=== PATIENT | male | born 1960 | race African-American/Black ===

== ENCOUNTER 2020-04-04 11:04 | Outpatient (CLI) | payer BC ==
[2020-04-04 12:02] LABS: Bilirubin Neg (Negative); Blood, Urine Negative (Negative); Clarity Clear (Clear); Glucose, Urine (Dipstick) Normal (Negative); Ketone, Urine Negative (Negative); Leukocyte Negative (Negative); Nitrite Negative (Negative); Protein, Urine (Dipstick) Negative (Neg-Trace); Specific Gravity, Urine 1.015 (1.002-1.036); Urobilinogen Normal mg/dL (Less than 2)
[2020-04-04 12:07] LABS: #Monocytes 0.5 10x3/uL (0.0-1.1); #Neutrophils 3.4 10x3/uL (1.5-8.4); %Basophils 0.6 % (0.0-2.0); %Eosinophils 0.4 % (0.0-6.0); %Lymphocytes 26.3 % (18.0-47.0); %Neutrophils 62.5 % (40.0-75.0); Hemoglobin 15.2 g/dL (14.0-18.0); Mean Corpuscular HGB CONC 32.1 G/DL (32.0-36.0); Mean Corpuscular Volume 93.7 fl (80.0-100.0); Mean Platelet Volume 11.2 fl (7.4-10.4); Platelet Count 211 10x3/uL (130-400); RBC Distribution Width 12.5 % (11.5-14.5); Red Blood Cell (RBC) Count 5.06 10x6/uL (4.40-5.80); White Blood Cell (WBC) Count 5.4 10x3/uL (4.5-11.0)
[2020-04-04 12:21] LABS: RBC/HPF None Seen HPF (0-3)
[2020-04-04 12:25] LABS: Bacteria/HPF None Seen HPF (None Seen); Squamous Epithelial None Seen HPF (0-3); WBC/HPF None Seen HPF (0-3)
[2020-04-04 12:29] LABS: Anion Gap 16 mmol/L (10-20); BUN (Urea Nitrogen) 13 mg/dL (8.4-25.7); Calc. Creatinine Clearance 0 mL/min (70-130); Calcium 9.3 mg/dL (7.8-10.44); Carbon Dioxide 24 mmol/L (22-29); Chloride 101 mmol/L (98-107); Glucose 105 mg/dL (70-105); Potassium 4.8 mmol/L (3.5-5.1); Sodium 136 mmol/L (136-145)
[2020-04-04 12:37] LABS: INR-International Normal Ratio 1.1; Prothrombin Time 11.2 sec (9.5-12.1)
[2020-04-05 06:32] LABS: SARS-CoV-2 MS2 Positive; SARS-CoV-2 N Gene Negative; SARS-CoV-2 S Gene Negative; SARS-CoV-2 by NAA Not Detected (NotDetected); SARS-CoV-2 orf1ab Negative
== END 2020-04-04 11:05 | disposition home or self-care (01) ==
LOC: LABBT 11:04
PROVIDERS: ATTEND Specialist
DX: Z01.818 Encounter for other preprocedural examination (principal); Z20.828 Contact with and (suspected) exposure to other viral communicable diseases; M17.11 Unilateral primary osteoarthritis, right knee
CPT/HCPCS: 80048; 81001; 85025; 85610; 87081; 87635; U0003

== ENCOUNTER 2020-04-06 05:57 | Day surgery (SDC) | payer BC ==
[2020-04-05 08:40] VITALS: BMI 29.8
--- NOTE | 2020-04-06 05:55 | HP ---
HISTORY OF PRESENT ILLNESS: The patient is a 60-year-old male with a several-year history of progressive problems with his right knee, which has become much worse over the past 2 months. He has had progressive pain despite rest, restriction of activities, use of a cane and a knee brace, and use of anti-inflammatory medication including meloxicam and a brief course of steroids. The pain is now interfering with day-to-day activities including walking, working, getting dressed, and sleeping. 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 PAST MEDICAL HISTORY: The patient is otherwise in good health. He has a history of hypertension and is taking the meloxicam for his current complaints. ALLERGIES: HE HAS NO KNOWN ALLERGIES. FAMILY HISTORY: Otherwise unremarkable. SOCIAL HISTORY: Otherwise unremarkable. REVIEW OF SYSTEMS: Otherwise unremarkable. PHYSICAL EXAMINATION: GENERAL: A healthy male. HEENT: Unremarkable. NECK: Supple. CHEST: Clear. HEART: Regular rate and rhythm. ABDOMEN: Soft and nontender. RECTAL: Deferred. GENITAL: Deferred. EXTREMITIES: Pertinent findings with the right knee, there is trace effusion. There is moderate varus deformity. There are healed small superficial lacerations of the anterior knee from previous injury without signs of infection. Range of motion is 5 to 90 degrees and limited by pain. There is crepitus with range of motion. There is no instability. Neurovascular exam is intact. Pulses are trace. There is good capillary refill. There is a right antalgic gait. There is no pain with range of motion of the right hip. DIAGNOSTIC STUDIES: X-rays of the right knee reveal severe degenerative arthritis and afdf-fl-pupt collapse medially. IMPRESSION: Degenerative arthritis, right knee. PLAN: Right total knee replacement. The nature of the surgery, length of recovery, and potential complications, such as infection, loss of motion, incomplete relief, delayed wound healing, neurovascular injury, thromboembolic phenomena, possible transfusion, and need for revision have been discussed in detail. Job ID: [id number]
[2020-04-06] MEDS ORDERED: Bupivacaine 0.25% HCL 30 ML VIAL ONE (06:31)
[2020-04-06] MEDS ORDERED: Lidocaine 1% w/Epinephrine 1:100K 20 ML VIAL ONE (06:31)
[2020-04-06] MEDS ORDERED: Tranexamic Acid 1,000 MG/10 ML VIAL ONE ×2 (06:40→09:24)
[2020-04-06] MEDS ORDERED: Vancomycin 1.5 GRAM/300 ML BAG ONE (06:40)
[2020-04-06] MEDS ORDERED: Sodium Chloride 0.9% 100 ML ONE (06:41)
[2020-04-06] MEDS ORDERED: Fentanyl 100 MCG/2 ML VIAL ONE ×3 (06:59→08:46)
[2020-04-06] MEDS ORDERED: Midazolam HCl 2 mg/2 ml Vial ONE (06:59)
[2020-04-06] MEDS ORDERED: Fentanyl 100 MCG/2 ML VIAL IV PRN (07:53)
[2020-04-06] MEDS ORDERED: Ropivacaine HCl/PF 250 ML in Premix Bag 1 BAG NERVE BLCK SCH (08:00)
[2020-04-06] MEDS ORDERED: Ondansetron PF 4 MG/2 ML Vial IVP PRN ×2 (08:00→09:26)
[2020-04-06] MEDS ORDERED: HYDROcodone/Acetaminophen 10/325 mg Tablet PO PRN ×3 (08:00→09:26)
[2020-04-06] MEDS ORDERED: Zolpidem Tartrate 5 MG TAB PO PRN ×2 (08:00→09:26)
[2020-04-06] MEDS ORDERED: Promethazine HCl 25 MG/ML VIAL IM PRN ×2 (08:00→08:56)
[2020-04-06] MEDS ORDERED: traMADol HCl 50 MG TAB PO PRN ×3 (08:00→09:26)
--- NOTE | 2020-04-06 08:21 | RAD ---
Exam: XR Knee Rt 2 View HISTORY: Preoperative evaluation. COMPARISON: None FINDINGS: Tricompartment osteophytosis is present with large osteophytes involving the medial joint compartment as well as patellofemoral joint. There is joint space loss involving the medial joint compartment. Calcifications overlie the lateral joint compartments suggesting chondrocalcinosis. No fracture or di slocation seen. Small suprapatellar joint effusion is identified. Vascular calcifications are seen posterior to the knee. IMPRESSION: Osteoarthritis with small suprapatellar joint effusion.
[2020-04-06] MEDS ORDERED: Meperidine HCl/PF 25 MG/ML VIAL SLOW IVP PRN (08:56)
[2020-04-06] MEDS ORDERED: Promethazine HCl 25 MG/ML VIAL SLOW IVP PRN ×2 (08:56→09:26)
[2020-04-06] MEDS ORDERED: Ondansetron HCl/PF 4 MG/2 ML Vial IVP PRN (08:56)
[2020-04-06] MEDS ORDERED: Fentanyl 100 MCG/2 ML VIAL SLOW IVP PRN ×2 (09:26)
[2020-04-06] MEDS ORDERED: diphenhydrAMINE 25 MG CAP PO PRN (09:26)
[2020-04-06] MEDS ORDERED: Acetaminophen 325 MG TAB PO PRN (09:26)
[2020-04-06] MEDS ORDERED: Tranexamic Acid 1,000 MG in Sodium Chloride 0.9% 100 ML IVPB SCH ×2 (09:26→09:45)
--- NOTE | 2020-04-06 10:07 | OP ---
DATE OF PROCEDURE: 04/06/2020 SHIFT NURSE MANAGER: Nicole Puga PA-C. The miller head assistant wet process co-surgeon was present through the entire procedure and was responsible for providing exposure, tissue retraction, and any necessary limb or tissue manipulation required to obtain necessary reduction or hardware placement. The miller head assistant wet process co-surgeon also provided bleeding control, tissue closure, and suturing in conjunction with the primary surgeon. ANESTHESIA: General plus adductor canal and sciatic nerve blocks. PREOPERATIVE DIAGNOSIS: Degenerative arthritis, right knee. POSTOPERATIVE DIAGNOSIS: Degenerative arthritis, right knee. PROCEDURE PERFORMED: Right total knee replacement with computer-assisted navigation with cemented [employer] Triathlon components (#5 femoral component, #5 primary tibial baseplate with 9 mm CS plastic insert, and all-plastic A35 patellar component). DESCRIPTION OF PROCEDURE: After satisfactory anesthesia was induced in supine position, sequential compression device was placed on the nonoperative leg throughout the procedure. The right leg was then prepped and draped in routine sterile fashion. The leg was elevated, exsanguinated with an Esmarch bandage and the tourniquet inflated to 300 mmHg. A gently curved medial parapatellar incision was made, carried down through the subcutaneous tissues and bleeding points were controlled with Bovie cautery. Medial parapatellar arthrotomy was performed. Patella was dislocated laterally and portions of the fat pad were excised for exposure. There was marked tricompartmental degenerative arthritis of the knee with large areas of exposed bone and large osteophytes. Osteophytes and meniscal remnants were removed. Using the [employer] pinless navigation system and the appropriate guides, the distal femoral and proximal tibial articular surfaces were excised with an oscillating saw to accept the trial components. It was felt that #5 femoral component, #5 tibial baseplate with 9 mm CS plastic insert gave appropriate size, fit, stability, and correction of the preoperative deformity. The patellar articular surface was excised to accept an A35 patellar component. There was good range of motion and good patellar tracking. Trial components were removed. The knee was copiously irrigated with the pulsatile lavage and the bony surfaces were thoroughly cleaned and dried. The permanent components were then cemented in a single stage using one pack of cement premixed with 1 g of tobramycin powder. Excess cement was removed. There was again good fit and stability of the components. The knee was copiously irrigated. The medial retinaculum and quadriceps mechanism was closed with interrupted #2 Vicryl and running #2 Quill. Subcutaneous tissues and skin were infiltrated with a mixture of 1% lidocaine with epinephrine and 0.5% plain Marcaine total of 50 mL. Subcutaneous tissues were closed with a running 0 Quill suture. The skin was closed with running subcuticular 3-0 Monoderm and SurgiSeal skin adhesive. A sterile bulky compressive dressing was applied and the tourniquet deflated after 89 minutes. The foot promptly pinked up and a sequential compression device was applied to the operated leg. He was awakened, taken to the recovery room in stable condition. There were no apparent intraoperative complications. The estimated blood loss was less than 100 mL. Job ID: [id number]
[2020-04-06] MEDS ORDERED: Ondansetron PF 4 MG/2 ML Vial ONE (10:08)
[2020-04-06] MEDS ORDERED: Bupivacaine HCl 0.5%/Epinephrine 1:200,000/PF 30 ml Vial ONE (10:08)
[2020-04-06] MEDS ORDERED: Ketorolac Tromethamine 30 MG/ML VIAL ONE (10:08)
[2020-04-06] MEDS ORDERED: Ropivacaine 0.2% HCl/PF (40 MG/20 ML VIAL) ONE (10:08)
[2020-04-06] MEDS ORDERED: Lidocaine 1% PF 5 ML VIAL ONE (10:08)
[2020-04-06] MEDS ORDERED: PROPOFOL 200 MG/20 ML VIAL ONE (10:08)
--- NOTE | 2020-04-06 11:46 | RAD ---
RIGHT KNEE 2 VIEWS: Date: 04/06/2020 HISTORY: Total knee arthroplasty. FINDINGS/IMPRESSION: There are recent postop changes of total knee arthroplasty in good position and alignment. Soft tissu e air is present. POS: AH
[2020-04-06] MEDS ORDERED: Ketorolac Tromethamine 30 MG/ML VIAL IVP SCH ×3 (12:00→21:00)
[2020-04-06] MEDS ORDERED: CEFAZOLIN 2 GM in Premix Bag 1 BAG IVPB SCH (14:00)
[2020-04-06] MEDS: Aspirin 81 mg Enteric Coated Tablet PO SCH ×2 (15:13→20:33)
[2020-04-06] MEDS: Sodium Chloride 0.9% 1,000 ML IV SCH ×2 (15:14→19:30)
[2020-04-06] MEDS: Multivitamin W/ Minerals 1 TAB PO SCH (15:14)
[2020-04-06] MEDS: Senokot S 8.6-50 MG TAB PO SCH ×2 (15:14→20:37)
[2020-04-06] MEDS: CEFAZOLIN 2 GM in Premix Bag 1 BAG IVPB SCH ×2 (15:23→23:45)
[2020-04-06] MEDS ORDERED: Vancomycin HCl 1.5 GM in Sodium Chloride 0.9% 250 ML 300 ML IVPB SCH (18:00)
[2020-04-06] MEDS ORDERED: Vancomycin 1.5 GRAM/300 ML BAG 1.5 GM in Premix Bag 1 BAG IVPB SCH (20:00)
[2020-04-07] MEDS: Ketorolac Tromethamine 30 MG/ML VIAL IVP SCH ×4 (02:42→20:35)
[2020-04-07 05:30] LABS: Hemoglobin 11.7 g/dL (14.0-18.0); Mean Corpuscular HGB CONC 32.6 g/dL (32.0-36.0); Mean Corpuscular Hemoglobin 30.8 pg (27.0-31.0); Mean Corpuscular Volume 94.3 fL (78.0-98.0); Mean Platelet Volume 8.7 fL (7.4-10.4); Platelet Count 150 thou/uL (130-400); RBC Distribution Width 11.9 % (11.5-14.5); Red Blood Cell (RBC) Count 3.81 mill/uL (4.70-6.10); White Blood Cell (WBC) Count 7.3 thou/uL (4.8-10.8)
[2020-04-07] MEDS: Sodium Chloride 0.9% 1,000 ML IV SCH ×2 (05:36→15:39)
[2020-04-07] MEDS: Multivitamin W/ Minerals 1 TAB PO SCH (09:14)
[2020-04-07] MEDS: Aspirin 81 mg Enteric Coated Tablet PO SCH ×2 (09:14→20:35)
[2020-04-07] MEDS: HYDROcodone/Acetaminophen 10/325 mg Tablet PO PRN (09:15)
[2020-04-07] MEDS: Senokot S 8.6-50 MG TAB PO SCH ×2 (09:15→20:35)
[2020-04-08] MEDS: Ketorolac Tromethamine 30 MG/ML VIAL IVP SCH ×3 (04:42→13:50)
[2020-04-08] MEDS: Sodium Chloride 0.9% 1,000 ML IV SCH ×2 (04:42→13:47)
[2020-04-08] MEDS: Aspirin 81 mg Enteric Coated Tablet PO SCH (09:47)
[2020-04-08] MEDS: Multivitamin W/ Minerals 1 TAB PO SCH (09:47)
[2020-04-08] MEDS: HYDROcodone/Acetaminophen 10/325 mg Tablet PO PRN ×2 (09:48→13:50)
[2020-04-08] MEDS: Senokot S 8.6-50 MG TAB PO SCH (09:49)
[2020-04-08 12:12] VITALS: BP 130/74; TEMP 98.7
== END 2020-04-08 15:35 | disposition home or self-care (01) ==
LOC: SDC 05:57 → SJJU 09:26 → SDC 04-08 15:35
PROVIDERS: ATTEND Orthopaedic Surgery
PROC: 3E0T3BZ Introduction of Anesthetic Agent into Peripheral Nerves and Plexi, Percutaneous Approach (ICD-10-PCS; principal; 2020-04-06)
PROC: 0SRC0J9 Replacement of Right Knee Joint with Synthetic Substitute, Cemented, Open Approach (ICD-10-PCS; principal; 2020-04-06)
PROC: 8E0YXBZ Computer Assisted Procedure of Lower Extremity (ICD-10-PCS; principal; 2020-04-06)
DX: M17.11 Unilateral primary osteoarthritis, right knee (principal); G89.18 Other acute postprocedural pain
CPT/HCPCS: 36415; 85027; C1713; C1776; J0690; J1885; J2250; J2405; J2704; J2795; J3010; J3370; J3490; S0020